=== PATIENT | male | born 1980 | race Caucasian/White ===

== ENCOUNTER 2018-04-23 14:45 | Emergency (ER) | payer BC ==
[~2018-04-23] VITALS: Ht 175.3 cm; Wt 85.7 kg
[2018-04-23 14:57] VITALS: Ht 175.3 cm; Wt 85.7 kg
[2018-04-23 15:34] VITALS: BP 121/73
== END 2018-04-23 15:34 | disposition home or self-care (01) ==
LOC: ED 14:45
DX: J20.8 Acute bronchitis due to other specified organisms (principal)
CPT/HCPCS: Q0092